=== PATIENT | male | born 1950 | race Caucasian/White ===

== ENCOUNTER 2017-09-13 11:12 | Emergency (ER) | payer SELFPAY ==
[2017-09-13 12:31] LABS: ABS Basophils 0.1 10^3/ul (0-0.2); ABS Eosinophils 0 10^3/ul (0-0.6); ABS Lymphocytes 1.2 10^3/ul (1.0-4.8); ABS Monocytes 0.6 10^3/ul (0-0.8); ABS Neutrophils 5.7 10^3/ul (1.5-7.7); ABS Nucleated RBC 0 10^3/ul; Eosinophil % 0.6 % (0-6); Hematocrit 40 % (42-52); Hemoglobin 13.6 g/dl (14.0-18.0); Lymphocyte % 15.4 % (25-47); Mean Corpuscular HGB Conc 34 g/dl (31-36); Mean Corpuscular Hemoglobin 32 pg (27-31); Mean Corpuscular Volume 94 fL (80-94); Mean Platelet Volume 8 um3 (7.4-10.4); Nucleated Red Blood Cells % 0.1; Platelet Count 239 10^3/ul (150-450); Red Blood Count 4.29 10^6/ul (4.0-5.4); Red Cell Distribution Width 14 % (10.5-15); White Blood Count 7.6 10^3/ul (3.5-10.8)
--- NOTE | 2017-09-13 12:46 | ED ---
Laceration/Wound HPI - HPI Summary HPI Summary: 66-year-old male presents with laceration to left index finger yesterday. He states he cut it on an razor in student's dormitory. 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 He states he immediately cleaned the area with soap and water and peroxide. He denies any fevers or drainage from the area. He has been keeping a Band-Aid on the area. He states there was no visible blood on the razor. He is concerned about infectious disease. He states he spoke with the students who owned the razor and believes that they're at low risk for infectious disease. - History of Current Complaint Stated Complaint: FINGER LAC/NEEDS BLOOD TEST Time Seen by Provider: 09/13/17 11:59 Pain Intensity: 0 - Allergy/Home Medications Allergies/Adverse Reactions: Allergies Allergy/AdvReac Type Severity Reaction Status Date / Time No Known Allergies Allergy Verified 09/13/17 11:26 Home Medications: Home Medications Albuterol Sulfate [Ventolin Hfa] 1 puff INH QID 09/13/17 [History Confirmed ] Fluticasone/Vilanterol MDI(NF) [Breo Ellipta MDI 200/25(NF)] 1 puff INH DAILY [History Confirmed 09/13/17] Losartan Potassium [Losartan Potassium] 100 mg PO DAILY 09/13/17 [History Confirmed 09/13/17] Meloxicam [Meloxicam] 7.5 mg PO BID 09/13/17 [History Confirmed 09/13/17] Montelukast Sodium TAB* [Singulair TAB*] 10 mg PO DAILY 09/13/17 [History Confirmed 09/13/17] Omeprazole [Omeprazole] 20 mg PO DAILY 09/13/17 [History Confirmed 09/13/17] Tiotropium CAP.INH* [Spiriva CAP.INH*] 18 mcg INH DAILY 09/13/17 [History Confirmed 09/13/17] Triamcinolone 0.1% CREAM (NF) [Kenalog 0.1% Cream (NF)] 09/13/17 [History] PMH/Surg Hx/FS Hx/Imm Hx Endocrine/Hematology History: Denies: Hx Anticoagulant Therapy Cardiovascular History: Denies: Hx Myocardial Infarction Infectious Disease History: Unable to Obtain/Confirm Infectious Disease History: Denies: Traveled Outside the [place] in Last 30 Days - Family History Known Family History: Positive: Hypertension - Social History Alcohol Use: None Substance Use Type: Reports: None Smoking Status (MU): Never Smoked Tobacco Review of Systems Negative: Fever Negative: Chest Pain Negative: Shortness Of Breath Positive: Other - left index finger laceration All Other Systems Reviewed And Are Negative: Yes Physical Exam Triage Information Reviewed: Yes Vital Signs On Initial Exam: Initial Vitals Temp Pulse Resp BP Pulse Ox 98.9 F 81 16 182/78 97 09/13/17 11:21 09/13/17 11:21 09/13/17 11:21 09/13/17 11:21 09/13/17 11:21 Vital Signs Reviewed: Yes Appearance: Positive: Well-Appearing Skin: Positive: Warm, Dry, Other - superificial laceration to left index finger Head/Face: Positive: Normal Head/Face Inspection Eyes: Positive: Normal, Conjunctiva Clear Respiratory/Lung Sounds: Positive: Clear to Auscultation, Breath Sounds Present Cardiovascular: Positive: Normal, RRR Musculoskeletal: Positive: Normal Neurological: Positive: Normal Psychiatric: Positive: Normal Diagnostics - Vital Signs Vital Signs Temp Pulse Resp BP Pulse Ox 09/13/17 11:21 98.9 F 81 16 182/78 97 - Laboratory Lab Results: Lab Results 09/13/17 09/13/17 Range/Units 12:10 12:10 WBC 7.6 (3.5-10.8) 10^3/ul RBC 4.29 (4.0-5.4) 10^6/ul Hgb 13.6 L (14.0-18.0) g/dl Hct 40 L (42-52) % MCV 94 (80-94) fL MCH 32 H (27-31) pg MCHC 34 (31-36) g/dl RDW 14 (10.5-15) % Plt Count 239 (150-450) 10^3/ul MPV 8 (7.4-10.4) um3 Neut % (Auto) 75.4 (38-83) % Lymph % (Auto) 15.4 L (25-47) % [place] % (Auto) 7.9 (1-9) % Eos % (Auto) 0.6 (0-6) % Baso % (Auto) 0.7 (0-2) % Absolute Neuts (auto) 5.7 (1.5-7.7) 10^3/ul Absolute Lymphs (auto) 1.2 (1.0-4.8) 10^3/ul Absolute Monos (auto) 0.6 (0-0.8) 10^3/ul Absolute Eos (auto) 0 (0-0.6) 10^3/ul Absolute Basos (auto) 0.1 (0-0.2) 10^3/ul Absolute Nucleated RBC 0 10^3/ul Nucleated RBC % 0.1 Sodium 134 (133-145) mmol/L Potassium 4.2 (3.5-5.0) mmol/L Chloride 102 (101-111) mmol/L Carbon Dioxide 27 (22-32) mmol/L Anion Gap 5 (2-11) mmol/L BUN 20 (6-24) mg/dL Creatinine 0.84 (0.67-1.17) mg/dL Est GFR ( Amer) 118.3 (>60) Est GFR (Non-Af Amer) 92.0 (>60) BUN/Creatinine Ratio 23.8 H (8-20) Glucose 92 (70-100) mg/dL Calcium 9.6 (8.6-10.3) mg/dL Total Bilirubin 0.60 (0.2-1.0) mg/dL AST 29 (13-39) U/L ALT 25 (7-52) U/L Alkaline Phosphatase 75 (34-104) U/L Total Protein 6.7 (6.4-8.9) g/dL Albumin 4.4 (3.2-5.2) g/dL Globulin 2.3 (2-4) g/dL Albumin/Globulin Ratio 1.9 (1-3) Result Diagrams: 09/13/17 12:10 09/13/17 12:10 Lab Statement: Any lab studies that have been ordered have been reviewed, and results considered in the medical decision making process. Laceration Repair Course/Dx - Course Course Of Treatment: 66-year-old male presents with laceration to left index finger yesterday. He states he cut it on an razor in student's dormitory. 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 He states he immediately cleaned the area with soap and water and peroxide. He denies any fevers or drainage from the area. He has been keeping a Band-Aid on the area. He states there was no visible blood on the razor. He is concerned about infectious disease. He states he spoke with the students who owned the razor and believes that they're at low risk for infectious disease. wound appears clean without any infection. got baseline labs. discussed that this is a low risk for HIV so will not start PEP. will have follow up with primary for continued care. patient understand and agrees with plan. - Differential Dx Differental Diagnoses: Abrasion, Laceration, Other - post exposure prophylaxis, - Clinical Impression Provider Diagnoses: Finger laceration Discharge - Discharge Plan Condition: Good Disposition: HOME Patient Education Materials: Acute Wound Care (ED) Referrals: Octavio Lyon MD [Primary Care Provider] - Additional Instructions: Wash area with soap and water Neosporin on area Follow-up with primary Return to ED if develop any new or worsening symptoms
[2017-09-13 12:58] VITALS: BP 175/91
== END 2017-09-13 12:57 | disposition home or self-care (01) ==
LOC: ED 11:12
DX: S61.211A Laceration without foreign body of left index finger without damage to nail, initial encounter (principal); W26.0XXA Contact with knife, initial encounter; Y92.214 College as the place of occurrence of the external cause
CPT/HCPCS: 36415; 80053; 85025; 86703; 86706; 86803; 87340; 99282

== ENCOUNTER 2024-07-22 10:59 | Inpatient (IN) ==
[2024-07-22 11:58] LABS: ABS Basophils 0.1 10^3/uL (0.0-0.1); ABS Eosinophils 0.1 10^3/uL (0.0-0.5); ABS Lymphocytes 0.7 10^3/uL (1.0-4.8); ABS Monocytes 1.3 10^3/uL (0.0-1.1); ABS Neutrophils 10.7 10^3/uL (1.5-7.6); ABS Nucleated RBC 0.02 10^3/ul; Hematocrit 38.6 % (38-53); Lymphocyte % 5.1 %; Mean Corpuscular Hgb Conc 33.6 g/dL (31-36); Mean Corpuscular Volume 95.2 fL (80-97); Mean Platelet Volume 6.7 fL (7.5-11.2); Nucleated Red Blood Cells % 0.1 %/100WBC (0.0-0.8); Platelet Count 336 10^3/uL (150-450); Red Blood Count 4.05 10^6/uL (4.06-5.63); Red Cell Distribution Width 13.7 % (12-17); White Blood Count 12.9 10^3/uL (3.6-10.2)
[2024-07-22 12:32] LABS: INR 1.19 (0.85-1.14)
[2024-07-22 12:39] LABS: Albumin 3.9 g/dL (3.5-5.7); Albumin/Globulin Ratio 1.5 (1-3); Calcium 9.1 mg/dL (8.6-10.3); Creatinine, Serum 0.75 mg/dL (0.67-1.17); Globulin 2.6 g/dL (2-4); Potassium 4.1 mmol/L (3.5-5.0); Total Protein 6.5 g/dL (6.4-8.9); eGFR CKD-EPI 96.5 (>60)
[2024-07-22 13:01] LABS: High Sensitivity Troponin 1 Hr 31 pg/mL (<20)
[2024-07-22] MEDS ORDERED: Iohexol 300 (CONTRAST) 10 ML SDV IV ONE (13:16)
[2024-07-22] MEDS: cefTRIAXone 1 gm/50 mL D5W 1 GM/50 ML BAG IV ONE (14:32)
[2024-07-22] MEDS: Azithromycin 500 mg/250 ml NS 500 MG/250 ML BAG IVPB ONE (15:03)
[2024-07-22] MEDS ORDERED: Albuterol HFA INHALER 8 gm MDI INH PRN (16:22)
[2024-07-22] MEDS: Enoxaparin 40 MG/0.4 ML SYR SUBCUT SCH (18:39)
[2024-07-22] MEDS: methylPREDNISolone SOD SUCC 40 mg/ml 1 ml VIAL IV SCH (18:39)
[2024-07-22] MEDS: Albuterol/Ipratropium NEB.SOL (2.5/0.5 MG) 3 ML NEB.SOLN INH SCH (19:33)
[2024-07-23 05:25] LABS: Urine Appearance Clear; Urine Bilirubin Negative (Negative); Urine Blood 1+ (Negative); Urine Color Light-Yellow; Urine Glucose Trace (Negative); Urine Ketones Trace (Negative); Urine Nitrite Negative (Negative); Urine Protein 1+ (>=30 mg/dL) (Negative); Urine Specific Gravity 1.023 (1.002-1.030); Urine Urobilinogen Negative (Negative)
[2024-07-23 05:33] LABS: Urine Bacteria Absent /HPF (Absent); Urine Red Blood Cell 2+(6-10/hpf) /HPF (0-Trace); Urine White Blood Cell Trace(0-5/hpf) /HPF (0-Trace)
[2024-07-23 06:32] LABS: Hematocrit 35.3 % (38-53); Hemoglobin 12.2 g/dL (13.2-16.3); Mean Corpuscular Hemoglobin 32.5 pg (27-33); Mean Corpuscular Hgb Conc 34.6 g/dL (31-36); Mean Corpuscular Volume 93.9 fL (80-97); Mean Platelet Volume 6.6 fL (7.5-11.2); Platelet Count 337 10^3/uL (150-450); Red Blood Count 3.76 10^6/uL (4.06-5.63); Red Cell Distribution Width 13.6 % (12-17); White Blood Count 6.8 10^3/uL (3.6-10.2)
[2024-07-23 06:55] LABS: Calcium 9.5 mg/dL (8.6-10.3); Creatinine, Serum 0.73 mg/dL (0.67-1.17); Potassium 4.3 mmol/L (3.5-5.0); eGFR CKD-EPI 97.3 (>60)
[2024-07-23] MEDS ORDERED: CMCS:FLUTICAS/UMECLI/VILANT 200-62.5-25 MDI (NF) INH SCH (09:00)
[2024-07-23] MEDS ORDERED: hydrALAZINE 20 mg/ml 1 ML Vial IV IV SLOW PU PRN (10:15)
[2024-07-23] MEDS: Saline NASAL SPRAY 0.65% BTL BOTH NARES PRN (10:35)
[2024-07-23] MEDS: cefTRIAXone 1 gm/50 mL D5W 1 GM/50 ML BAG IV SCH (15:50)
[2024-07-23] MEDS: Azithromycin 500 mg/250 ml NS 500 MG/250 ML BAG IVPB SCH (16:49)
[2024-07-23 21:15] LABS: High Sensitivity Troponin 1 Hr 238 pg/mL (<20)
[2024-07-23 21:48] LABS: Hematocrit 36.2 % (38-53); Hemoglobin 12.1 g/dL (13.2-16.3); Mean Corpuscular Hemoglobin 31.7 pg (27-33); Mean Corpuscular Hgb Conc 33.5 g/dL (31-36); Mean Corpuscular Volume 94.8 fL (80-97); Mean Platelet Volume 6.7 fL (7.5-11.2); Platelet Count 363 10^3/uL (150-450); Red Blood Count 3.82 10^6/uL (4.06-5.63); Red Cell Distribution Width 13.9 % (12-17)
[2024-07-23] MEDS: Heparin 5000 UNITS/ML 1 mL VIAL IV SCH (22:05)
[2024-07-23] MEDS: Heparin DRIP 25,000 UNITS BAG 25,000 UNITS/250 ML BAG IV SCH (22:08)
[2024-07-23 22:28] LABS: Creatinine, Serum 0.88 mg/dL (0.67-1.17); eGFR CKD-EPI 91.9 (>60)
[2024-07-23 22:34] LABS: ABS Lymphocytes 0.3 10^3/uL (1.0-4.8); ABS Monocytes 0.8 10^3/uL (0.0-1.1); ABS Nucleated RBC 0.01 10^3/ul; Giant Platelets Present; Lymphocyte % 1.3 %; Nucleated Red Blood Cells % 0.1 %/100WBC (0.0-0.8); RBC Morphology Normal (Normal)
[2024-07-23 23:42] LABS: High Sensitivity Troponin 3 Hr 599 pg/mL (<20)
[2024-07-24 05:32] LABS: Hematocrit 33.7 % (38-53); Hemoglobin 11.3 g/dL (13.2-16.3); Mean Corpuscular Hemoglobin 31.5 pg (27-33); Mean Corpuscular Hgb Conc 33.4 g/dL (31-36); Mean Corpuscular Volume 94.2 fL (80-97); Platelet Count 357 10^3/uL (150-450); Red Blood Count 3.58 10^6/uL (4.06-5.63); Red Cell Distribution Width 13.9 % (12-17); White Blood Count 22.9 10^3/uL (3.6-10.2)
[2024-07-24 05:42] LABS: ABS Basophils 0.1 10^3/uL (0.0-0.1); ABS Lymphocytes 0.9 10^3/uL (1.0-4.8); ABS Monocytes 1.1 10^3/uL (0.0-1.1); ABS Neutrophils 20.9 10^3/uL (1.5-7.6); ABS Nucleated RBC 0.01 10^3/ul; Lymphocyte % 3.8 %
[2024-07-24 05:49] LABS: Albumin 3.5 g/dL (3.5-5.7); Albumin/Globulin Ratio 1.5 (1-3); Creatinine, Serum 0.59 mg/dL (0.67-1.17); Globulin 2.3 g/dL (2-4); Magnesium 1.8 mg/dL (1.9-2.7); Potassium 4.3 mmol/L (3.5-5.0); Total Bilirubin 0.3 mg/dL (0.2-1.0); Total Protein 5.8 g/dL (6.4-8.9); eGFR CKD-EPI 103.7 (>60)
[2024-07-24 06:53] LABS: High Sensitivity Troponin 1 Hr 2378 pg/mL (<20)
[2024-07-24 09:07] LABS: HDL Cholesterol 46.5 mg/dL
[2024-07-24] MEDS: Magnesium Sulfate 2 gm BAG 2 GM/50 ML BAG IVPB ONE (10:26)
[2024-07-24] MEDS: Nitroglycerin 0.4 mg/hr PATCH (10 mg) TRANSDERM SCH (11:39)
[2024-07-24 12:57] LABS: High Sensitivity Troponin 1 Hr 2345 pg/mL (<20)
[2024-07-24 14:41] LABS: High Sensitivity Troponin 3 Hr 2055 pg/mL (<20)
[2024-07-24] MEDS: methylPREDNISolone SOD SUCC 40 mg/ml 1 ml VIAL IV SCH (15:42)
[2024-07-24] MEDS ORDERED: Enoxaparin 40 MG/0.4 ML SYR SUBCUT SCH (17:00)
[2024-07-25] MEDS: Albuterol/Ipratropium NEB.SOL (2.5/0.5 MG) 3 ML NEB.SOLN INH PRN (04:58)
[2024-07-25 07:17] LABS: Hematocrit 31.1 % (38-53); Hemoglobin 10.6 g/dL (13.2-16.3); Mean Corpuscular Hemoglobin 31.6 pg (27-33); Mean Platelet Volume 6.7 fL (7.5-11.2); Platelet Count 342 10^3/uL (150-450); Red Blood Count 3.35 10^6/uL (4.06-5.63); Red Cell Distribution Width 13.6 % (12-17)
[2024-07-25] MEDS: Nitroglycerin 0.2 mg/hr PATCH (5 mg) TRANSDERM SCH (07:40)
[2024-07-25] MEDS ORDERED: Sulfur Hexaflouride MICROSPHR 25 MG VIAL ONE (08:25)
[2024-07-25 08:52] LABS: Calcium 8.3 mg/dL (8.6-10.3); Creatinine, Serum 0.47 mg/dL (0.67-1.17); Potassium 4.2 mmol/L (3.5-5.0); eGFR CKD-EPI 111.1 (>60)
[2024-07-25] MEDS ORDERED: Nitroglycerin 0.4 mg/hr PATCH (10 mg) TRANSDERM SCH (09:00)
[2024-07-25] MEDS: Sulfur Hexaflouride MICROSPHR 25 MG VIAL IV PRN (09:16)
[2024-07-25] MEDS ORDERED: fentaNYL 100 mcg/2 ml 50 MCG/ML VIAL ONE (09:40)
[2024-07-25] MEDS ORDERED: Midazolam 5 mg/5 ml VIAL 1 mg/ml 5 ml VIAL (5 mg) ONE (09:40)
[2024-07-25] MEDS ORDERED: Heparin 1,000 UNIT/ML 10 ml (10,000 UNITS) CATHLAB/DIALYSIS ONE (09:41)
[2024-07-25] MEDS ORDERED: Iohexol 350 (CONTRAST) 200 ML MDV IV ONE (09:41)
[2024-07-25] MEDS ORDERED: Lidocaine 1% VIAL 10 MG/ML 30 ML VIAL ONE (09:41)
[2024-07-25] MEDS ORDERED: niCARdipine 0.1MG/ML IVPREMIX 20 MG/200 ML BAG IV ONE (09:41)
[2024-07-25] MEDS ORDERED: Heparin 2 UNITS/ML 1000 mls 2,000 ML IV ONE (09:41)
[2024-07-25] MEDS ORDERED: nitroGLYCERIN DRIP 25,000 MCG/250 ML BTL ONE (09:41)
[2024-07-25 21:22] VITALS: BP 166/90
== END 2024-07-25 23:28 | disposition short-term general hospital (02) | DRG 193 ==
LOC: EDHOLD 10:59 → ED 10:59 → MEDTELE 17:00
PROVIDERS: ADMIT Student in an Organized Health Care Education/Training Program; ATTEND Student in an Organized Health Care Education/Training Program

== ENCOUNTER 2024-08-11 07:21 | Inpatient (IN) ==
[2024-08-11 07:44] LABS: Venous Bicarbonate HCO3 26.4 mmol/L (24-28)
[2024-08-11 07:47] LABS: ABS Lymphocytes 0.4 10^3/uL (1.0-4.8); ABS Monocytes 0.8 10^3/uL (0.0-1.1); ABS Neutrophils 14.5 10^3/uL (1.5-7.6); Hematocrit 29.7 % (38-53); Lymphocyte % 2.5 %; Mean Corpuscular Hemoglobin 31.5 pg (27-33); Mean Corpuscular Hgb Conc 33.6 g/dL (31-36); Mean Corpuscular Volume 93.6 fL (80-97); Mean Platelet Volume 6.5 fL (7.5-11.2); Platelet Count 350 10^3/uL (150-450); Red Blood Count 3.17 10^6/uL (4.06-5.63); Red Cell Distribution Width 15.4 % (12-17); White Blood Count 15.7 10^3/uL (3.6-10.2)
[2024-08-11] MEDS: Albuterol 2.5mg/3 ml (0.083%) NEB.SOLN INH ONE (07:57)
[2024-08-11] MEDS: Furosemide 40 mg/4 ml IV VIAL IV ONE (08:10)
[2024-08-11 08:27] LABS: Albumin 3.4 g/dL (3.5-5.7); Albumin/Globulin Ratio 1.1 (1-3); Calcium 8.5 mg/dL (8.6-10.3); Creatinine, Serum 0.61 mg/dL (0.67-1.17); Globulin 3.2 g/dL (2-4); Magnesium 1.6 mg/dL (1.9-2.7); Total Bilirubin 0.6 mg/dL (0.2-1.0); Total Protein 6.6 g/dL (6.4-8.9); eGFR CKD-EPI 102.7 (>60)
[2024-08-11 09:19] LABS: High Sensitivity Troponin 1 Hr 24 pg/mL (<20)
[2024-08-11] MEDS: Iohexol 350 (CONTRAST) 500 ML MDV IV ONE (09:46)
[2024-08-11] MEDS: Cefepime 1 GM in Dextrose 1 GM/50 ML BAG IV ONE (12:11)
[2024-08-11] MEDS: Azithromycin 500 mg/250 ml NS 500 MG/250 ML BAG IVPB ONE (12:15)
[2024-08-11] MEDS: Magnesium Sulfate 2 gm BAG 2 GM/50 ML BAG IVPB ONE (12:24)
[2024-08-11] MEDS ORDERED: Albuterol HFA INHALER 8 gm MDI INH PRN (13:39)
[2024-08-11] MEDS: Enoxaparin 40 MG/0.4 ML SYR SUBCUT SCH (16:25)
[2024-08-11] MEDS ORDERED: Cefepime 2 GM in Dextrose 2 GM/50 ML BAG IV SCH (20:00)
[2024-08-11] MEDS: Cefepime 2 GM in Dextrose 2 GM/50 ML BAG IV SCH (20:30)
[2024-08-12] MEDS: Furosemide 40 mg/4 ml IV VIAL IV SLOW PU ONE (06:23)
[2024-08-12 07:16] LABS: ABS Basophils 0.1 10^3/uL (0.0-0.1); ABS Lymphocytes 0.7 10^3/uL (1.0-4.8); ABS Monocytes 0.8 10^3/uL (0.0-1.1); ABS Neutrophils 14.7 10^3/uL (1.5-7.6); ABS Nucleated RBC 0.01 10^3/ul; Hemoglobin 9.1 g/dL (13.2-16.3); Lymphocyte % 4.1 %; Mean Corpuscular Hemoglobin 31.5 pg (27-33); Mean Corpuscular Hgb Conc 33.8 g/dL (31-36); Mean Corpuscular Volume 93.1 fL (80-97); Mean Platelet Volume 7.2 fL (7.5-11.2); Platelet Count 343 10^3/uL (150-450); Red Cell Distribution Width 15.1 % (12-17); White Blood Count 16.2 10^3/uL (3.6-10.2)
[2024-08-12 07:46] LABS: Anion Gap 8 mmol/L (2-16); Blood Urea Nitrogen 18 mg/dL (6-24); CO2 Carbon Dioxide 30 mmol/L (22-32); Calcium 8.3 mg/dL (8.6-10.3); Chloride 93 mmol/L (101-111); Creatinine, Serum 0.61 mg/dL (0.67-1.17); Glucose 132 mg/dL (70-100); Magnesium 2.1 mg/dL (1.9-2.7); Sodium 131 mmol/L (135-145); eGFR CKD-EPI 102.7 (>60)
[2024-08-12] MEDS: FLUTICASONE FUROATE INH SCH (08:23)
[2024-08-12] MEDS: CMCS: Prasugrel 10 mg TAB (NF) PO SCH (08:23)
[2024-08-12] MEDS: UMECLIDINIUM INH SCH (08:23)
[2024-08-12] MEDS: VILANTEROL INH SCH (08:23)
[2024-08-12] MEDS: Albuterol 2.5mg/3 ml (0.083%) NEB.SOLN INH ONE (09:09)
[2024-08-12] MEDS: Azithromycin 500 mg/250 ml NS 500 MG/250 ML BAG IVPB SCH (12:41)
[2024-08-12] MEDS ORDERED: Azithromycin 500 mg/250 ml NS 500 MG/250 ML BAG IVPB SCH (13:00)
[2024-08-12] MEDS: Albuterol 2.5mg/3 ml (0.083%) NEB.SOLN INH PRN (15:02)
[2024-08-12] MEDS: Cefepime 2 GM in Dextrose 2 GM/50 ML BAG IV SCH (21:53)
[2024-08-12] MEDS: guaiFENesin/CODIENE 100mg/10mg 5 ML UDC PO PRN (22:42)
[2024-08-13] MEDS: Morphine 2 MG/ML SYRINGE IV ONE (03:21)
[2024-08-13 05:07] LABS: ABS Basophils 0.1 10^3/uL (0.0-0.1); ABS Lymphocytes 0.8 10^3/uL (1.0-4.8); ABS Monocytes 0.7 10^3/uL (0.0-1.1); ABS Neutrophils 10.5 10^3/uL (1.5-7.6); Eosinophil % 0.1 %; Hematocrit 24.6 % (38-53); Hemoglobin 8.1 g/dL (13.2-16.3); Lymphocyte % 6.7 %; Mean Corpuscular Hemoglobin 30.6 pg (27-33); Mean Corpuscular Hgb Conc 32.9 g/dL (31-36); Mean Corpuscular Volume 93.2 fL (80-97); Mean Platelet Volume 6.7 fL (7.5-11.2); Platelet Count 323 10^3/uL (150-450); Red Blood Count 2.64 10^6/uL (4.06-5.63); Red Cell Distribution Width 15.5 % (12-17); White Blood Count 12.1 10^3/uL (3.6-10.2)
[2024-08-13 05:54] LABS: Calcium 8.2 mg/dL (8.6-10.3); Creatinine, Serum 0.56 mg/dL (0.67-1.17); Potassium 4.2 mmol/L (3.5-5.0); eGFR CKD-EPI 105.4 (>60)
[2024-08-13 10:01] LABS: Folate 6.59 ng/mL (5.90-24.80)
[2024-08-13] MEDS: guaiFENesin 100 mg/5 ml LIQ unit dose cup PO PRN ×2 (14:14→19:27)
[2024-08-14] MEDS: Morphine 2 MG/ML SYRINGE IV PRN (00:24)
[2024-08-14 04:41] LABS: ABS Lymphocytes 0.8 10^3/uL (1.0-4.8); ABS Monocytes 0.9 10^3/uL (0.0-1.1); ABS Neutrophils 9.1 10^3/uL (1.5-7.6); Eosinophil % 0.2 %; Hematocrit 23.5 % (38-53); Lymphocyte % 7.2 %; Mean Corpuscular Hemoglobin 31.6 pg (27-33); Mean Corpuscular Volume 92.8 fL (80-97); Mean Platelet Volume 6.6 fL (7.5-11.2); Platelet Count 335 10^3/uL (150-450); Red Blood Count 2.54 10^6/uL (4.06-5.63); Red Cell Distribution Width 14.8 % (12-17); White Blood Count 10.9 10^3/uL (3.6-10.2)
[2024-08-14 05:25] LABS: Creatinine, Serum 0.4 mg/dL (0.67-1.17); Potassium 4.5 mmol/L (3.5-5.0); eGFR CKD-EPI 116.6 (>60)
[2024-08-15 05:57] LABS: ABS Eosinophils 0.2 10^3/uL (0.0-0.5); ABS Lymphocytes 0.7 10^3/uL (1.0-4.8); ABS Monocytes 0.9 10^3/uL (0.0-1.1); ABS Neutrophils 8.8 10^3/uL (1.5-7.6); Eosinophil % 1.7 %; Hematocrit 25.3 % (38-53); Hemoglobin 8.4 g/dL (13.2-16.3); Lymphocyte % 6.3 %; Mean Corpuscular Hemoglobin 30.7 pg (27-33); Mean Corpuscular Hgb Conc 33.3 g/dL (31-36); Mean Corpuscular Volume 92.3 fL (80-97); Mean Platelet Volume 6.9 fL (7.5-11.2); Platelet Count 384 10^3/uL (150-450); Red Blood Count 2.74 10^6/uL (4.06-5.63); Red Cell Distribution Width 15.3 % (12-17); White Blood Count 10.5 10^3/uL (3.6-10.2)
[2024-08-15 07:33] LABS: Creatinine, Serum 0.42 mg/dL (0.67-1.17); Magnesium 1.9 mg/dL (1.9-2.7); Potassium 4.3 mmol/L (3.5-5.0); eGFR CKD-EPI 114.9 (>60)
[2024-08-15] MEDS: Morphine 2 MG/ML SYRINGE IV PRN (10:11)
[2024-08-15] MEDS: methylPREDNISolone SOD SUCC 125 mg 2 ML VIAL IV ONE (12:55)
[2024-08-15] MEDS: Furosemide 40 mg/4 ml IV VIAL IV SLOW PU ONE (17:42)
[2024-08-15] MEDS: methylPREDNISolone SOD SUCC 40 mg/ml 1 ml VIAL IV SCH (19:57)
[2024-08-16 04:12] LABS: ABS Lymphocytes 0.4 10^3/uL (1.0-4.8); ABS Monocytes 0.6 10^3/uL (0.0-1.1); ABS Neutrophils 11.4 10^3/uL (1.5-7.6); ABS Nucleated RBC 0.01 10^3/ul; Hematocrit 25.5 % (38-53); Hemoglobin 8.5 g/dL (13.2-16.3); Mean Corpuscular Hemoglobin 30.3 pg (27-33); Mean Corpuscular Hgb Conc 33.2 g/dL (31-36); Mean Corpuscular Volume 91.2 fL (80-97); Mean Platelet Volume 6.7 fL (7.5-11.2); Nucleated Red Blood Cells % 0.1 %/100WBC (0.0-0.8); Platelet Count 459 10^3/uL (150-450); Red Cell Distribution Width 15.3 % (12-17); White Blood Count 12.4 10^3/uL (3.6-10.2)
[2024-08-16 04:42] LABS: Calcium 8.4 mg/dL (8.6-10.3); Creatinine, Serum 0.47 mg/dL (0.67-1.17); Potassium 4.6 mmol/L (3.5-5.0); eGFR CKD-EPI 111.1 (>60)
[2024-08-16] MEDS: guaiFENesin 100 mg/5 ml LIQ unit dose cup PO SCH (10:12)
[2024-08-17 06:08] LABS: ABS Basophils 0.1 10^3/uL (0.0-0.1); ABS Lymphocytes 0.5 10^3/uL (1.0-4.8); ABS Monocytes 1.1 10^3/uL (0.0-1.1); ABS Neutrophils 11.2 10^3/uL (1.5-7.6); ABS Nucleated RBC 0.01 10^3/ul; Hematocrit 21.3 % (38-53); Lymphocyte % 4.2 %; Mean Corpuscular Hgb Conc 33.1 g/dL (31-36); Mean Corpuscular Volume 90.7 fL (80-97); Mean Platelet Volume 6.7 fL (7.5-11.2); Platelet Count 413 10^3/uL (150-450); Red Blood Count 2.35 10^6/uL (4.06-5.63); Red Cell Distribution Width 15.3 % (12-17); White Blood Count 12.9 10^3/uL (3.6-10.2)
[2024-08-17 06:49] LABS: Calcium 7.8 mg/dL (8.6-10.3); Creatinine, Serum 0.46 mg/dL (0.67-1.17); Phosphorus 3.4 mg/dL (2.5-5.0); Potassium 4.9 mmol/L (3.5-5.0); eGFR CKD-EPI 111.8 (>60)
[2024-08-17] MEDS: Furosemide 20 mg/2 ml IV VIAL IV SLOW PU ONE ×2 (12:34→13:35)
[2024-08-18 04:44] LABS: ABS Lymphocytes 0.4 10^3/uL (1.0-4.8); ABS Monocytes 0.8 10^3/uL (0.0-1.1); ABS Neutrophils 9.8 10^3/uL (1.5-7.6); Hematocrit 21.4 % (38-53); Hemoglobin 7.2 g/dL (13.2-16.3); Lymphocyte % 3.6 %; Mean Corpuscular Hemoglobin 30.3 pg (27-33); Mean Corpuscular Hgb Conc 33.6 g/dL (31-36); Mean Corpuscular Volume 90.3 fL (80-97); Mean Platelet Volume 6.8 fL (7.5-11.2); Platelet Count 441 10^3/uL (150-450); Red Blood Count 2.37 10^6/uL (4.06-5.63); Red Cell Distribution Width 15.2 % (12-17)
[2024-08-18 05:23] LABS: Calcium 7.8 mg/dL (8.6-10.3); Creatinine, Serum 0.44 mg/dL (0.67-1.17); eGFR CKD-EPI 113.3 (>60)
[2024-08-18] MEDS: Albuterol 2.5mg/3 ml (0.083%) NEB.SOLN INH PRN (08:30)
[2024-08-18] MEDS: Furosemide 40 mg/4 ml IV VIAL IV ONE (20:25)
[2024-08-19 02:12] LABS: PCO2 Arterial 68 mmHg (35-45); PO2 Arterial 64 mmHg (80-100)
[2024-08-19 03:42] LABS: PO2 Arterial 86 mmHg (80-100)
[2024-08-19 03:45] LABS: PCO2 Arterial 74 mmHg (35-45)
[2024-08-19 05:03] LABS: Hematocrit 27.8 % (38-53); Hemoglobin 9.3 g/dL (13.2-16.3); Mean Corpuscular Hgb Conc 33.5 g/dL (31-36); Mean Corpuscular Volume 89.5 fL (80-97); Platelet Count 471 10^3/uL (150-450); Red Cell Distribution Width 16.1 % (12-17); White Blood Count 22.1 10^3/uL (3.6-10.2)
[2024-08-19 05:43] LABS: Blood Urea Nitrogen 40 mg/dL (6-24); CO2 Carbon Dioxide 37 mmol/L (22-32); Calcium 8.2 mg/dL (8.6-10.3); Chloride 87 mmol/L (101-111); Creatinine, Serum 0.61 mg/dL (0.67-1.17); Glucose 164 mg/dL (70-100); Magnesium 2.1 mg/dL (1.9-2.7); Potassium 5.3 mmol/L (3.5-5.0); Sodium 124 mmol/L (135-145); eGFR CKD-EPI 102.7 (>60)
[2024-08-19 06:32] LABS: ABS Basophils 0.1 10^3/uL (0.0-0.1); ABS Lymphocytes 0.5 10^3/uL (1.0-4.8); ABS Monocytes 1.7 10^3/uL (0.0-1.1); ABS Neutrophils 19.8 10^3/uL (1.5-7.6); ABS Nucleated RBC 0.02 10^3/ul; Lymphocyte % 2.3 %; Nucleated Red Blood Cells % 0.1 %/100WBC (0.0-0.8)
[2024-08-19] MEDS: LORazepam 2 mg VIAL 1 ml IV PUSH ONE (09:30)
[2024-08-19] MEDS ORDERED: Lorazepam PYXIS KEY PRN (09:50)
[2024-08-19] MEDS: LORazepam 2 mg VIAL 1 ml ONE (11:54)
[2024-08-19 11:55] LABS: Osmolality Serum 278 mOsm/kg (275-295)
[2024-08-19] MEDS: Pantoprazole VIAL 40 MG VIAL IV SCH (11:56)
[2024-08-19] MEDS ORDERED: LORazepam 2 mg VIAL 1 ml IV PUSH PRN (12:03)
[2024-08-19 12:06] VITALS: BP 120/71
[2024-08-19] MEDS: Morphine 10 MG/ML VIAL (1 mL) 100 MG in NS 0.9% 100 ml BAG 90 ML IV SCH (13:03)
[2024-08-19] MEDS: Morphine 10 MG/ML VIAL (1 ml) IV ONE (13:09)
[2024-08-19] MEDS: LORazepam 2 mg VIAL 1 ml IV PUSH PRN (13:10)
== END 2024-08-19 13:39 | disposition expired | DRG 291 ==
LOC: EDHOLD 07:21 → ED 07:21 → EDHOLD 12:24 → ICU 12:33 → MEDTELE 14:38 → ICU 08-12 06:02
PROVIDERS: ADMIT Student in an Organized Health Care Education/Training Program; ATTEND Internal Medicine Critical Care Medicine